=== PATIENT | male | born 1975 | race Caucasian/White ===

== ENCOUNTER 2016-11-30 07:47 | Outpatient (CLI) | payer OTHER ==
--- NOTE | 2016-11-30 09:29 | DIAGNOSTIC IMAGING REPORT ---
PROCEDURE: US ABDOMEN ULTRASOUND-COMPLETE INDICATION: ABN LFT,RUQ PAIN AFTER EATING TECHNIQUE: Olson scale and color Doppler sonographic images of the abdomen were obtained. COMPARISON: None. FINDINGS: Mildly enlarged liver (18.3 cm) with diffuse increased echogenicity. Normal pancreas and spleen. Multiple small mobile sludge balls. There is no wall thickening or pericholecystic fluid. Normal CBD, 3.1 mm. Negative Nieves' s sign. Aorta and IVC are patent. Normal hepatopetal flow. Normal kidneys. Right kidney measures 12.2 cm and left kidney 11.8 cm. IMPRESSION: 1. Multiple small mobile sludge balls 2. Mild hepatomegaly and steatosis versus intrinsic liver disease
== END 2016-11-30 23:00 ==
LOC: US SRH 07:47
DX: R10.11 Right upper quadrant pain (principal); R93.5 Abnormal findings on diagnostic imaging of other abdominal regions, including retroperitoneum